=== PATIENT | male | born 1950 | race Caucasian/White ===

== ENCOUNTER → 2020-07-29 11:16 | Outpatient (BNVA) | payer MEDICAID, SELFPAY | PROVIDERS: PCP Internal Medicine Geriatric Medicine; Visit Provider Urology | DX: N20.0 Calculus of kidney (principal) | CPT/HCPCS: 99202; 99203 ==

== ENCOUNTER 2020-12-21 09:03 | Emergency (ER) | payer MEDICAID, SELFPAY ==
--- NOTE | ~2020-12-21 | XR_ITS ---
EXAMINATION: XR SHOULDER, RIGHT CLINICAL INFORMATION: Fall, trauma, pain COMPARISON: None TECHNIQUE: Right shoulder is imaged in 3 views. FINDINGS: There is no fracture or dislocation or destructive process. The acromioclavicular alignment is normal. There is fine corticated ossicle superior acromioclavicular joint. Glenohumeral joint shows no narrowing or erosive change. There are no visible rotator cuff calcifications. Right lung apex shows no pneumothorax or pleural reaction. XR/XR shoulder RT min 2V IMPRESSION: Unremarkable right shoulder.
[2020-12-21 11:33] VITALS: BP 151/80; PULSE 63; RESP 20; TEMP 36.7; O2SAT 98; BMI 28.5
--- NOTE | 2020-12-21 12:00 | ED.EXTPRO ---
HPI - Extremity Problem General Chief complaint: Extremity Injury, Upper Stated complaint: shoulder pain, fall T-1 Time Seen by Provider: 12/21/20 11:31 Source: patient Mode of arrival: ambulatory Limitations: no limitations History of Present Illness HPI Narrative: 70 yo with past medical history of High cholesterol, HTN (hypertension), Renal stone here status post fall yesterday. The patient had a trip and fall down 2 steps landing on his right shoulder. He tells me he may have hit his head but he is unsure. There was no loss of consciousness. Denies headache, neck pain. Care complaining of right shoulder pain. No anticoagulation use. Related Data Home Medications Medication Instructions Recorded Confirmed aspirin 81 mg tablet,delayed 81 mg PO DAILY 07/29/20 release atorvastatin 40 mg tablet 40 mg PO DAILY 07/29/20 metoprolol succinate 100 mg 100 mg PO DAILY 07/29/20 tablet,extended release 24 hr valsartan 160 mg tablet 160 mg PO DAILY 07/29/20 Previous Rx's Medication Instructions Recorded cyclobenzaprine 10 mg PO TID PRN #10 tab 12/21/20 naproxen 500 mg PO BID PRN #30 tab 12/21/20 Allergies Allergy/AdvReac Type Severity Reaction Status Date / Time No Known Allergies Allergy Unverified 06/30/20 16:34 [No Known Allergies*] Review of Systems Review of Systems: Yes all other systems are reviewed and are negative Constitutional: Constitutional: Reports no additional constitutional complaints, Denies body ache(s), Denies chills, Denies fever(s), Denies headache(s) and Denies weakness Eyes: Eyes: Reports no additional eye complaints and Denies change in vision ENT: Reports system reviewed and no additional complaints, except as documented, Denies dizziness, Denies headache(s), Denies nasal congestion, Denies nasal discharge and Denies neck pain Cardiovascular: Cardiovascular: Reports no additional cardiovascular complaints, Denies chest pain, Denies leg edema and Denies dyspnea Respiratory: Respiratory: Reports no additional respiratory complaints, Denies cough and Denies dyspnea Gastrointestinal: Gastrointestinal: Reports no additional gastrointestinal complaints, Denies abdominal pain, Denies diarrhea, Denies nausea and Denies vomiting Genitourinary: Genitourinary: Denies urinary incontinence Musculoskeletal: Musculoskeletal: Reports no additional musculoskeletal complaints, Denies back pain, Reports arthralgias, Reports joint swelling, Denies neck pain, Denies numbness and Denies tingling Integumentary/Breasts: Skin/Breast: Reports system reviewed and no additional complaints, except as docu and Denies rash Neurologic: Reports system reviewed and no additional complaints, except as documented, Denies Abnormal speech present, Denies dizziness, Denies headache(s), Denies numbness, Denies tingling and Denies weakness PMFSH Past Medical History Attestation statement: The following information was validated with the patient. Source: old records reviewed and nursing notes reviewed Medical History (Updated 12/21/20 @ 12:11 by Fanta Johnson NP) High cholesterol HTN (hypertension) Renal stone Surgical History History of lung surgery Social History Social History Smoked in Last 30 Days: No Use of substances other than those prescribed or required for medical reasons: No Advance Directives: Yes Advance Directives Information Provided: No Advance Directives on File: No Physical Exam Vital Signs: Vital Signs: Last Vital Signs Temp 98.0 F 12/21/20 11:33 Pulse 63 12/21/20 11:33 Resp 20 12/21/20 11:33 BP 151/80 H 12/21/20 11:33 Pulse Ox 98 12/21/20 11:33 Body Mass Index 28.5 Const: General: cooperative, healthy appearing, comfortable and no acute distress Orientation/consciousness: patient oriented x3 Limitations: no limitations HENMT: Head: Yes normal to inspection Ears: hearing grossly normal bilaterally General nose exam: Normal external nose present Face and sinus: Yes normal facial exam Mouth: Normal oral and palatal mucosa present Throat: Yes posterior oropharynx normal Eyes: General: appearance normal, both eyes and all related structures Pupils: Equal, round and reactive pupils present Neck: Neck: Yes normal visual inspection Chest: Chest palpation & inspection: normal inspection of the chest Resp: Effort & Inspection: normal respiratory effort Auscultation: clear to auscultation bilaterally Cardio: Rate: regular rate Rhythm: regular rhythm Peripheral pulses: Peripheral pulses 2+ throughout GI: Inspection: Yes normal to inspection Palpation (GI): Soft to palpation and nontender Auscultation: normal bowel sounds Back/Spine/Pelvis: Thoracic/Lumbar Spine: thoracic and lumbar spine normal to inspection Skin: General skin exam: no rashes or lesions noted Neuro: General: patient oriented x3, no focal motor deficits and normal sensation to monofilament Cranial nerves: Yes CN's II-XII intact bilaterally, Yes Equal, round and reactive pupils present, Yes Bilaterally intact EOM present, Yes Nystagmus not present, Yes Normal facial strength present and Yes Midline tongue present Cognition (Neuro): normal cognition Speech: No Abnormal speech present Gait exam (Neuro): Normal gait present Motor exam (neuro): 5/5 motor strength present throughout Sensory Exam: Normal double simultaneous stimulation for sensation Coordination: [id number] test normal, jnss-[id number] test normal and tandem gait normal Extrem: Other: Tenderness to the right proximal humerus with no deformity or swelling. Full range of motion. Neurovascularly intact distally. No obvious ecchymosis or deformity General: Yes normal to inspection Course Course Course Narrative: Right shoulder pain status post mechanical fall. There is also question head injury. The patient has no headache or neck pain or vision changes or nausea or vomiting. Normal neurological exam. I did recommend that we also obtain imaging of his head and neck but he declined this. He tells me he would only like an x-ray of his shoulder. 1305-0 shoulder x-ray shows no acute finding. Likely contusion. Reviewed care at home. Reviewed worrisome signs and symptoms of when to return to the emergency department. Comfortable discharge home. MDM - Extremity (Nontraumatic) Imaging Data shoulder x-ray: Attestation: I personally reviewed and interpreted this imaging study as follows: Radiologist's impression: EXAMINATION: XR SHOULDER, RIGHT CLINICAL INFORMATION: Fall, trauma, pain COMPARISON: None TECHNIQUE: Right shoulder is imaged in 3 views. FINDINGS: There is no fracture or dislocation or destructive process. The acromioclavicular alignment is normal. There is fine corticated ossicle superior acromioclavicular joint. Glenohumeral joint shows no narrowing or erosive change. There are no visible rotator cuff calcifications. Right lung apex shows no pneumothorax or pleural reaction. XR/XR shoulder RT min 2V IMPRESSION: Unremarkable right shoulder. Discharge Plan Discharge Clinical Impression: Contusion of right shoulder Patient Disposition: Home, Self-Care Instructions: Contusion in Adults (ED) Additional Instructions: Ice to the shoulder Light movement Follow-up with your PCP by saturday of no improvement in pain Prescriptions: New cyclobenzaprine 10 mg tablet 10 mg PO TID PRN (Reason: muscle spasm) Qty: 10 RF: 0 naproxen 500 mg tablet 500 mg PO BID PRN (Reason: pain) Qty: 30 RF: 0 No Action aspirin [Adult Aspirin Regimen] 81 mg tablet,delayed release (DR/EC) 81 mg PO DAILY RF: 0 atorvastatin 40 mg tablet 40 mg PO DAILY RF: 0 valsartan 160 mg tablet 160 mg PO DAILY RF: 0 metoprolol succinate 100 mg tablet extended release 24 hr 100 mg PO DAILY RF: 0 Referrals: Name,MD Baldomero [Primary Care Provider] - 2 days Interventions: ED Discharge Assessment Last Done: 12/21/20 12:26 Discharge Date/Time: 12/21/20 12:26
== END 2020-12-21 12:26 | disposition home or self-care (01) ==
PROVIDERS: Emergency Provider Emergency Medicine Emergency Medical Services; PCP Internal Medicine Geriatric Medicine
DX: S40.011A Contusion of right shoulder, initial encounter (principal); S49.91XA Unspecified injury of right shoulder and upper arm, initial encounter; M25.511 Pain in right shoulder; W10.9XXA Fall (on) (from) unspecified stairs and steps, initial encounter; Y93.9 Activity, unspecified; Y92.9 Unspecified place or not applicable; Y99.9 Unspecified external cause status; Z79.899 Other long term (current) drug therapy; Z79.82 Long term (current) use of aspirin
CPT/HCPCS: 73030; 99283

== ENCOUNTER 2021-05-01 12:43 | Emergency (ER) | payer MEDICAID, SELFPAY ==
--- NOTE | ~2021-05-01 | XR_ITS ---
EXAMINATION: XR CHEST CLINICAL INFORMATION: Chest pain COMPARISON: Previous chest x-ray most recent July [address] December 2015 TECHNIQUE: 2 views of the chest were obtained. FINDINGS: The cardiac and mediastinal contours are stable. There are postsurgical changes to the left hemithorax surgical clips in the left posterior lower chest. There is a small peripheral 5 mm right mid lung nodule that appears unchanged. There may be chronic increased interstitial markings seen in the lungs, particularly left lung. This appears unchanged. There is biapical pleural thickening. The lungs are otherwise clear. There is no pleural effusion or pneumothorax. There is mild curvature of the thoracic spine. XR/XR chest 2V IMPRESSION: No evidence for acute disease in the chest. Surgical clips in the left posterior lower chest. Stable small peripheral right mid pulmonary nodule and increased interstitial markings similar to previous exams.
[2021-05-01 12:50] VITALS: BP 190/80; PULSE 77; RESP 18; TEMP 37; O2SAT 97; BMI 29.9
--- NOTE | 2021-05-01 13:04 | ECG_ITS ---
Test Reason : CHESTPAIN Blood Pressure : / mmHG Vent. Rate : 071 BPM Atrial Rate : 071 BPM P-R Int : 156 ms QRS Dur : 090 ms QT Int : 370 ms P-R-T Axes : 047 045 059 degrees QTc Int : 402 ms Normal sinus rhythm Normal ECG When compared with ECG of 10-JAN-2016 15:30, No significant change was found Referred By: Generic ED Physician Electronically Signed By:RAYNE PARKER MD
[2021-05-01 14:30] LABS: MANUAL DIFF FLAG NO
[2021-05-01 14:34] LABS: Basophils Absolute Auto 0.1 X10*3/uL (0.0-0.2); Basophils Percent Auto 0.9 % (0-2); Eosinophils Absolute Auto 0.4 X10*3/uL (0.0-0.4); Eosinophils Percent Auto 4.5 % (0-4); Hematocrit 42.6 % (42-52); Hemoglobin 14.3 g/dl (14.0-18.0); Imm Gran Pct Auto 1.2 % (0.0-0.4); Lymphocytes Absolute Auto 1.3 X10*3/uL (1.2-4.9); Lymphocytes Percent Auto 15.6 % (20-40); Mean Corpuscular HGB Conc 33.6 g/dl (31.0-36.0); Mean Corpuscular Hemoglobin 29.1 pg (27.0-33.0); Mean Corpuscular Volume 86.6 fL (80-98); Mean Platelet Volume 9.9 fL (9.4-12.4); Monocytes Absolute Auto 0.6 X10*3/uL (0.1-1.2); Monocytes Percent Auto 7.8 % (2-11); Neutrophils Absolute Auto 5.7 X10*3/uL (2.0-8.3); Platelet Count 267 X10*3/uL (160-400); Red Blood Count 4.92 X10*6/uL (4.60-5.80); Red Cell Distribution Width 12.6 % (11.0-16.0); White Blood Count 8.2 X10*3/uL (4.8-10.8)
--- NOTE | 2021-05-01 14:50 | ED.CHESTPAIN ---
HPI - Chest Pain General Chief Complaint: Chest Pain Stated Complaint: CHEST TO BACK PAIN Time Seen by Provider: 05/01/21 13:56 Source: patient Mode of arrival: ambulatory Limitations: no limitations History of Present Illness MD complaint: other (L back sharp pain) Onset (ago): day(s) (3) Timing of current episode: episodic Prior episodes: No Onset: during rest and during exertion Pain location: lateral and posterior Pain radiation: none Severity: moderate Quality: sharp Relieving factors: nothing Exacerbating factors: inspiration, palpation and movement Treatment prior to arrival: none Related Data Home Medications Medication Instructions Recorded Confirmed aspirin 81 mg tablet,delayed 81 mg PO DAILY 07/29/20 release atorvastatin 40 mg tablet 40 mg PO DAILY 07/29/20 metoprolol succinate 100 mg 100 mg PO DAILY 07/29/20 tablet,extended release 24 hr valsartan 160 mg tablet 160 mg PO DAILY 07/29/20 Previous Rx's Medication Instructions Recorded cyclobenzaprine 10 mg PO TID PRN #10 tab 12/21/20 naproxen 500 mg PO BID PRN #30 tab 12/21/20 cyclobenzaprine 10 mg PO TID PRN #14 tab 05/01/21 lidocaine 1 patch TOPICAL DAILY PRN #10 ea 05/01/21 Allergies Allergy/AdvReac Type Severity Reaction Status Date / Time No Known Allergies Allergy Unverified 06/30/20 16:34 [No Known Allergies*] Review of Systems Review of Systems: Constitutional : No Weight loss, No Fever, No Chills ENT/Mouth : No sore throat, No Rhinorrhea Eyes: No Eye Pain, No Swelling Cardiovascular : pos Chest Pain, no SOB, no Dyspnea on Exertion, No Orthopnea, No Edema, No Palpitations Respiratory : No Cough, No Sputum Gastrointestinal : no Nausea, No Vomiting, No Diarrhea, No abdominal Pain, No Hematochezia, No Melena Genitourinary : No Dysuria, No Urinary Frequency Musculoskeletal : No joint pain, No Myalgias, No Joint Swelling, pos back pain Skin : No Skin Lesions, No rash Neuro : No Weakness, No Numbness, No Dizziness, No Headache Psych : No Anxiety/Panic, No Depression Heme/Lymph: No Bruising, No Lymphadenopathy Endocrine : No Polyuria, No Polydipsia All other systems reviewed and are negative PMFSH Past Medical History Attestation statement: The following information was validated with the patient. Medical History Depression High cholesterol HTN (hypertension) Renal stone Surgical History History of lung surgery Social History Social History Alcohol intake: never Patient Tobacco Use Status: Former Tobacco user Use of substances other than those prescribed or required for medical reasons: No Advance Directives: No Advance Directives Information Provided: No Physical Exam Vital Signs: Vital Signs: Last Vital Signs Temp 98.6 F 05/01/21 12:50 Pulse 66 05/01/21 14:53 Resp 21 H 05/01/21 14:53 BP 190/91 H 05/01/21 14:53 Pulse Ox 97 05/01/21 14:53 Body Mass Index 29.9 Appearance: Alert. Oriented X3. No acute distress. Eyes: Pupils equal, round and reactive to light. ENT: Pharynx normal. Neck: Normal inspection. Neck supple. CVS: Normal heart rate and rhythm. Pulses normal. Back: ttp L upper back near scapula reproduces pain Respiratory: No respiratory distress. Breath sounds normal. Abdomen: Soft and nontender. Skin: Skin warm and dry. Normal skin color. Normal skin turgor. Extremities: No lower extremity edema. No calf ttp Neuro: Oriented X 3. No motor deficit. No sensory deficit. Course Course Course Narrative: patient with negative ddimer, CXR, nonischemic EKG, trop in flat range at 3 day daryl MDM - Chest Pain MDM Narrative Medical decision making narrative: 71 yo male with HTN prior L VATS procedure for what sounds like empyema 20 years ago c/o 3 days of L sided upper back pain that is MSK in nature but reproduceable will need labs, ekg, troponin x 1, pain control, ddimer dispo per results and findings. Lab Data Result diagrams: 05/01/21 14:24 05/01/21 14:24 Labs: Lab Results 05/01/21 05/01/21 05/01/21 Range/Units 14:23 14:24 14:24 WBC 8.2 (4.8-10.8) X10*3/uL RBC 4.92 (4.60-5.80) X10*6/uL Hgb 14.3 (14.0-18.0) g/dl Hct 42.6 (42-52) % MCV 86.6 (80-98) fL MCH 29.1 (27.0-33.0) pg MCHC 33.6 (31.0-36.0) g/dl RDW 12.6 (11.0-16.0) % Plt Count 267 (160-400) X10*3/uL MPV 9.9 (9.4-12.4) fL Immature Gran % (Auto) 1.2 H (0.0-0.4) % Neut % (Auto) 70.0 (45-73) % Lymph % (Auto) 15.6 L (20-40) % [place] % (Auto) 7.8 (2-11) % Eos % (Auto) 4.5 H (0-4) % Baso % (Auto) 0.9 (0-2) % Lymph # (Auto) 1.3 (1.2-4.9) X10*3/uL [place] # (Auto) 0.6 (0.1-1.2) X10*3/uL Eos # (Auto) 0.4 (0.0-0.4) X10*3/uL Baso # (Auto) 0.1 (0.0-0.2) X10*3/uL Abs Immat Gran (auto) 0.10 H (0.00-0.03) X10*3/uL Absolute Neuts (auto) 5.7 (2.0-8.3) X10*3/uL Absolute Nucleated RBC 0.000 (0.0-0.012) X10*3/uL Nucleated RBC % (auto) 0.0 (0.0-0.2) /100WBC D-Dimer NG/ML Sodium 137 (135-145) mmol/L Potassium 4.6 (3.3-5.1) mmol/L Chloride 103 (96-108) mmol/L Carbon Dioxide 27 (22-29) mmol/L Anion Gap 12 (12-20) BUN 11 (9-16) mg/dL Creatinine 1.06 (0.5-1.4) mg/dL Estim Creat Clear Calc 72.6 Estimated GFR > 60 Random Glucose 220 H (60-115) mg/dL Calcium 9.6 (8.4-10.2) mg/dL Troponin I High Sens 6.4 (<3.5-35.0) ng/L 05/01/21 Range/Units 15:20 WBC (4.8-10.8) X10*3/uL RBC (4.60-5.80) X10*6/uL Hgb (14.0-18.0) g/dl Hct (42-52) % MCV (80-98) fL MCH (27.0-33.0) pg MCHC (31.0-36.0) g/dl RDW (11.0-16.0) % Plt Count (160-400) X10*3/uL MPV (9.4-12.4) fL Immature Gran % (Auto) (0.0-0.4) % Neut % (Auto) (45-73) % Lymph % (Auto) (20-40) % [place] % (Auto) (2-11) % Eos % (Auto) (0-4) % Baso % (Auto) (0-2) % Lymph # (Auto) (1.2-4.9) X10*3/uL [place] # (Auto) (0.1-1.2) X10*3/uL Eos # (Auto) (0.0-0.4) X10*3/uL Baso # (Auto) (0.0-0.2) X10*3/uL Abs Immat Gran (auto) (0.00-0.03) X10*3/uL Absolute Neuts (auto) (2.0-8.3) X10*3/uL Absolute Nucleated RBC (0.0-0.012) X10*3/uL Nucleated RBC % (auto) (0.0-0.2) /100WBC D-Dimer < 200 NG/ML Sodium (135-145) mmol/L Potassium (3.3-5.1) mmol/L Chloride (96-108) mmol/L Carbon Dioxide (22-29) mmol/L Anion Gap (12-20) BUN (9-16) mg/dL Creatinine (0.5-1.4) mg/dL Estim Creat Clear Calc Estimated GFR Random Glucose (60-115) mg/dL Calcium (8.4-10.2) mg/dL Troponin I High Sens (<3.5-35.0) ng/L ECG Data ECG #1: Attestation: I personally reviewed and interpreted this ECG as follows: ECG interpretation date: 05/01/21 ECG interpretation time: 14:51 Interpretation: Rate: 71 Rhythm: NSR [place]: normal Normal P waves. Normal BRYAN. Normal QRS complex. ST T wave : normal no ALEJANDRA qTC: normal prior studies: no acute ischemia The study has been interpreted contemporaneously by me. . Discharge Plan Discharge Clinical Impression: Atypical chest pain Back pain Qualifiers: Back pain location: thoracic back pain Chronicity: acute Back pain laterality: left Qualified Code(s): M54.6 - Pain in thoracic spine Patient Disposition: Home, Self-Care Instructions: Chest Pain (ED), Back Pain (ED) Additional Instructions: return to ED for any worsening symptoms or concerns Prescriptions: New cyclobenzaprine 10 mg tablet 10 mg PO TID PRN (Reason: muscle spasm) Qty: 14 RF: 0 lidocaine 4 % adhesive patch,medicated 1 patch topical DAILY PRN (Reason: pain) Qty: 10 RF: 0 No Action cyclobenzaprine 10 mg tablet 10 mg PO TID PRN (Reason: muscle spasm) Qty: 10 RF: 0 naproxen 500 mg tablet 500 mg PO BID PRN (Reason: pain) Qty: 30 RF: 0 aspirin [Adult Aspirin Regimen] 81 mg tablet,delayed release (DR/EC) 81 mg PO DAILY RF: 0 atorvastatin 40 mg tablet 40 mg PO DAILY RF: 0 valsartan 160 mg tablet 160 mg PO DAILY RF: 0 metoprolol succinate 100 mg tablet extended release 24 hr 100 mg PO DAILY RF: 0 Referrals: Name,MD Baldomero [Primary Care Provider] - 2 days (if not better) Print Language: Colombian
[2021-05-01 14:53] VITALS: BP 190/91; PULSE 66; RESP 21; O2SAT 97
[2021-05-01 14:56] LABS: Anion Gap 12 (12-20); Blood Urea Nitrogen 11 mg/dL (9-16); Calcium 9.6 mg/dL (8.4-10.2); Carbon Dioxide 27 mmol/L (22-29); Chloride 103 mmol/L (96-108); Creatinine Clr Calc Pharmacy 72.6; Estimated Glomerular Filt Rate > 60; Glucose Random 220 mg/dL (60-115); Potassium 4.6 mmol/L (3.3-5.1); Sodium 137 mmol/L (135-145)
[2021-05-01 14:58] VITALS: PULSE 64
[2021-05-01 15:02] LABS: Troponin-I High Sensitivity 6.4 ng/L (<3.5-35.0)
[2021-05-01] MEDS: Acetaminophen 325 MG TABLET 650 MG PO (15:11)
[2021-05-01] MEDS: Lidocaine 4 % Patch ADH..PATCH 1 PATCH TRANSDERMA (15:11)
[2021-05-01] MEDS: Cyclobenzaprine HCl 10 MG TABLET PO (15:11)
[2021-05-01 15:35] LABS: D Dimer < 200 NG/ML
[2021-05-01 15:44] VITALS: BP 173/88; PULSE 64
== END 2021-05-01 15:47 | disposition home or self-care (01) ==
PROVIDERS: Emergency Provider Emergency Medicine; PCP Internal Medicine Geriatric Medicine
DX: R07.89 Other chest pain (principal); M54.6 Pain in thoracic spine; I10 Essential (primary) hypertension; Z79.82 Long term (current) use of aspirin; Z79.899 Other long term (current) drug therapy
CPT/HCPCS: 36415; 71046; 80048; 84484; 85025; 85379; 93005; 99284; 99285

== ENCOUNTER 2021-06-28 11:59 | Outpatient (REF) | payer MEDICAID, SELFPAY ==
--- NOTE | ~2021-06-28 | US_ITS ---
EXAMINATION: US RETROPERITONEAL LIMITED (RENAL ONLY) CLINICAL INFORMATION: Calculus of kidney. COMPARISON: CT abdomen and pelvis 06/29/2020. TECHNIQUE: Real-time imaging of the kidneys. FINDINGS: RIGHT KIDNEY: 11.6 x 4.7 x 5.0 cm (SAG x AP x TRV). The kidney is normal in size, contour, and echogenicity. Renal cortical thickness is normal. No calculi or focal parenchymal lesions. No hydronephrosis. LEFT KIDNEY: 10.9 x 5.3 x 5.3 cm (SAG x AP x TRV). The kidney is normal in size, contour, and echogenicity. Renal cortical thickness is normal. No calculi or focal parenchymal lesions. No hydronephrosis. US/US renal BI IMPRESSION: Unremarkable bilateral renal ultrasound.
== END 2021-06-28 12:00 | disposition home or self-care (01) ==
LOC: HO.US 11:59
PROVIDERS: PCP Internal Medicine Geriatric Medicine; Visit Provider Urology
DX: N20.0 Calculus of kidney (principal)
CPT/HCPCS: 76775

== ENCOUNTER 2021-09-16 14:00 | Emergency (ER) | payer MEDICAID, SELFPAY ==
[2021-09-16 16:01] VITALS: BP 186/96; PULSE 90; RESP 18; TEMP 36.1; O2SAT 97; BMI 32.8
--- NOTE | 2021-09-16 18:10 | ED_ITS ---
HPI - Back Pain/Injury General Chief Complaint: Back Pain/Injury Stated Complaint: Back Pain No Injury Time Seen by Provider: 09/16/21 17:55 Source: patient Mode of arrival: ambulatory Limitations: no limitations History of Present Illness HPI Narrative: Patient no significant back problem noticed pain in left lower back for last 2 days radiating to the left leg no history of trauma no weakness Related Data Home Medications Medication Instructions Recorded Confirmed aspirin 81 mg tablet,delayed 81 mg PO DAILY 07/29/20 release (Adult Aspirin Regimen) atorvastatin 40 mg tablet 40 mg PO DAILY 07/29/20 metoprolol succinate 100 mg 100 mg PO DAILY 07/29/20 tablet,extended release 24 hr valsartan 160 mg tablet 160 mg PO DAILY 07/29/20 Previous Rx's Medication Instructions Recorded cyclobenzaprine 10 mg tablet 10 mg PO TID PRN #10 tab 12/21/20 naproxen 500 mg tablet 500 mg PO BID PRN #30 tab 12/21/20 cyclobenzaprine 10 mg tablet 10 mg PO TID PRN #14 tab 05/01/21 lidocaine 4 % topical patch 1 patch TOPICAL DAILY PRN #10 ea 05/01/21 cyclobenzaprine 10 mg tablet 10 mg PO Q8H #20 tab 09/16/21 oxycodone 5 mg tablet 5 mg PO Q6H PRN #20 tab 09/16/21 Allergies Allergy/AdvReac Type Severity Reaction Status Date / Time No Known Allergies Allergy Unverified 09/16/21 16:00 [No Known Allergies*] Review of Systems Review of Systems: Yes all other systems are reviewed and are negative [facility] Past Medical History Medical History Depression High cholesterol HTN (hypertension) Renal stone Surgical History History of lung surgery Social History Social History Alcohol intake: never Patient Tobacco Use Status: Former Tobacco user Advance Directives: No Advance Directives Information Provided: Yes Physical Exam Vital Signs: Vital Signs: Last Vital Signs Temp 97.0 F 09/16/21 16:01 Pulse 90 09/16/21 16:01 Resp 18 09/16/21 16:01 BP 186/96 H 09/16/21 16:01 Pulse Ox 97 09/16/21 16:01 BMI result Body Mass Index 32.8 Const: General: healthy appearing and comfortable Orientation/consciousness: patient oriented x3 GI: Inspection: Yes normal to inspection Palpation (GI): Soft to palpation and nontender : General: Yes no CVA tenderness Back/Spine/Pelvis: Back: no CVA tenderness Thoracic/Lumbar Spine: No thoracic spinal tenderness and No lumbar spinal tenderness Back/spine/pelvis image: 1. Left sciatic notch tenderness SLR positive at 60 degrees on the left side no paresthesias no motor weakness Neuro: General: patient oriented x3, gait normal, tone normal, moves all extremities and Normal light touch and pain sensation Discharge Plan Discharge Clinical Impression: Sciatica Qualifiers: Laterality: left Qualified Code(s): M54.32 - Sciatica, left side Patient Disposition: Home, Self-Care Instructions: Sciatica (ED) Additional Instructions: Rest at home Use donut to sit Take pain medication and muscle relaxant as advised Prescriptions: New cyclobenzaprine 10 mg tablet 10 mg PO Q8H Qty: 20 RF: 0 oxycodone 5 mg tablet 5 mg PO Q6H PRN (Reason: Pain (Scale Score 4-6)) Qty: 20 RF: 0 No Action cyclobenzaprine 10 mg tablet 10 mg PO TID PRN (Reason: muscle spasm) Qty: 10 RF: 0 naproxen 500 mg tablet 500 mg PO BID PRN (Reason: pain) Qty: 30 RF: 0 cyclobenzaprine 10 mg tablet 10 mg PO TID PRN (Reason: muscle spasm) Qty: 14 RF: 0 lidocaine 4 % adhesive patch,medicated 1 patch topical DAILY PRN (Reason: pain) Qty: 10 RF: 0 aspirin [Adult Aspirin Regimen] 81 mg tablet,delayed release (DR/EC) 81 mg PO DAILY RF: 0 atorvastatin 40 mg tablet 40 mg PO DAILY RF: 0 valsartan 160 mg tablet 160 mg PO DAILY RF: 0 metoprolol succinate 100 mg tablet extended release 24 hr 100 mg PO DAILY RF: 0 Interventions: ED Discharge Assessment Last Done: 09/16/21 18:54 Discharge Date/Time: 09/16/21 18:56
[2021-09-16] MEDS: Cyclobenzaprine HCl 10 MG TABLET PO (18:32)
[2021-09-16] MEDS: oxyCODONE HCl Immed Release 5 MG TABLET 10 MG PO (18:32)
== END 2021-09-16 18:56 | disposition home or self-care (01) ==
PROVIDERS: Emergency Provider Internal Medicine
DX: M54.42 Lumbago with sciatica, left side (principal); I10 Essential (primary) hypertension
CPT/HCPCS: 99283; 99284

== ENCOUNTER 2021-09-18 21:58 | Emergency (ER) | payer MEDICAID, SELFPAY ==
--- NOTE | ~2021-09-18 | CT_ITS ---
EXAMINATION: CT ABDOMEN AND PELVIS WITHOUT CONTRAST CLINICAL INFORMATION: Lumbar pain. Urinary retention. COMPARISON: 06.29.2020 TECHNIQUE: Multidetector volumetric imaging was performed from the superior aspect of the liver through the pubic symphysis. Sagittal and coronal reformatted images were obtained on the technologist's workstation. This CT examination was performed using dose optimization techniques as appropriate, variously including the following: *Automated exposure control *Adjustment of mA and/or kV according to patient size (this includes techniques or standardized protocols for targeted exams where dose is matched to indication/reason for exam; i.e. extremities or head) *Use of iterative reconstruction technique DLP: 635 mGy-cm FINDINGS: LUNG BASES: Postsurgical changes redemonstrated along the left lower hemithorax. Mild emphysema and bibasilar pleural-parenchymal scarring. Coronary calcifications. LIVER, GALLBLADDER, AND BILIARY TREE: The liver is normal in size, shape, and attenuation. No focal hepatic lesion or biliary ductal dilatation is present. Cholelithiasis. PANCREAS: Unremarkable. SPLEEN: Unremarkable. ADRENAL GLANDS: Unremarkable. KIDNEYS AND URETERS: The kidneys are normal in size, shape, and attenuation. No hydronephrosis, hydroureter, or calculi seen. No perinephric stranding. BLADDER: Empty around a Castorena catheter. Lateral otherwise unremarkable. GASTROINTESTINAL TRACT: The small and large bowel are unremarkable. The appendix is unremarkable. ABDOMINAL WALL: Small fat-containing indirect inguinal hernia on the right. LYMPH NODES: Normal. VASCULAR: Aorta is atherosclerotic but normal caliber. PELVIC VISCERA: Prostate is mildly enlarged and contains dystrophic calcifications. No periprostatic fat stranding. Seminal vesicles unremarkable. OSSEOUS STRUCTURES: No acute or suspicious osseous abnormalities. CT/CT abdomen pelvis wo con IMPRESSION: * No acute findings within the abdomen or pelvis. * Bladder is empty and contains a Castorena catheter. * No hydronephrosis or urinary calculi. * No acute osseous abnormalities with respect to the lumbar spine. * Stable chronic findings including cholelithiasis, mild prostatomegaly and emphysema.
[2021-09-18 22:07] VITALS: BP 186/100; PULSE 93; O2SAT 98
[2021-09-18 22:46] VITALS: BP 179/94; PULSE 75; RESP 18; TEMP 36.6; O2SAT 94; BMI 31.8
[2021-09-18 23:22] LABS: Appearance Urine CLEAR; Color Urine YELLOW; Glucose Urine UA NEG (NEG); Leukocyte Esterase Urine NEG (NEG); Nitrite Urine NEG (NEG); Specific Gravity - Urine >= 1.030 (1.005-1.025); Urine Blood NEG (NEG); Urine Ketones NEG (NEG); Urine Protein TRACE MG/DL (NEG-TRACE)
--- NOTE | 2021-09-19 01:16 | PC.NURSE ---
PT TO ROOM, CHG INTO GOWN AND AWAITING FOR MD'S EVAL.
--- NOTE | 2021-09-19 01:22 | ED.MALEGU ---
HPI - Male Genitourinary General Chief complaint: Urogenital-Male Stated complaint: LEFT HIP AND BACK PAIN Time Seen by Provider: 09/19/21 01:16 Source: patient Mode of arrival: ambulatory Limitations: no limitations History of Present Illness HPI Narrative: Patient comes to emergency room complaining of urinary retention. Patient was seen 2 days ago, diagnosed with sciatica, given oxycodone. Patient states that after starting the oxycodone he started having urinary retention. Patient states he has had back pain for 4 days. Patient denies any history of trauma, no heavy lifting. Patient states that the pain started while he was sitting down. Patient denies any leg weakness, no urinary incontinence or fecal incontinence/retention. Only complaining of urinary retention that started after taking oxycodone Related Data Home Medications Medication Instructions Recorded Confirmed aspirin 81 mg tablet,delayed 81 mg PO DAILY 07/29/20 release (Adult Aspirin Regimen) atorvastatin 40 mg tablet 40 mg PO DAILY 07/29/20 metoprolol succinate 100 mg 100 mg PO DAILY 07/29/20 tablet,extended release 24 hr valsartan 160 mg tablet 160 mg PO DAILY 07/29/20 Previous Rx's Medication Instructions Recorded cyclobenzaprine 10 mg tablet 10 mg PO TID PRN #10 tab 12/21/20 naproxen 500 mg tablet 500 mg PO BID PRN #30 tab 12/21/20 cyclobenzaprine 10 mg tablet 10 mg PO TID PRN #14 tab 05/01/21 lidocaine 4 % topical patch 1 patch TOPICAL DAILY PRN #10 ea 05/01/21 cyclobenzaprine 10 mg tablet 10 mg PO Q8H #20 tab 09/16/21 oxycodone 5 mg tablet 5 mg PO Q6H PRN #20 tab 09/16/21 acetaminophen 500 mg capsule 500 mg PO Q6H PRN #20 cap 09/19/21 ibuprofen 600 mg tablet 600 mg PO TID PRN #14 tab 09/19/21 Allergies Allergy/AdvReac Type Severity Reaction Status Date / Time No Known Allergies Allergy Unverified 09/16/21 16:00 [No Known Allergies*] Review of Systems Review of Systems: Constitutional : No Weight loss, No Fever, No Chills, No Night Sweats, No Fatigue, No Malaise ENT/Mouth : No Hearing loss, No Ear Pain, No Nasal Congestion, No Sinus Pain, No Hoarseness, No sore throat, No Rhinorrhea, No Swallowing Difficulty Eyes: No Eye Pain, No Swelling, No Redness, No Foreign Body, No Discharge, No Vision Changes Cardiovascular : No Chest Pain, No SOB, No Dyspnea on Exertion, No Orthopnea, No Edema, No Palpitations Respiratory : No Cough, No Sputum, No Wheezing, No Smoke Exposure, No Dyspnea Gastrointestinal : No Nausea, No Vomiting, No Diarrhea, No Constipation, No abdominal Pain, No Hematochezia, No Melena Genitourinary : Complaining of urinary retention after ingesting oxycodone. No Dysuria, No Urinary Frequency, No Hematuria, No Urinary Incontinence, No Urgency, No Flank Pain, No Urinary Flow Changes, No Hesitancy Musculoskeletal : Complaining of sacral pain radiating towards the left leg, No Myalgias, No Joint Swelling Skin : No Skin Lesions, No rash Neuro : No Weakness, No Numbness, No Paresthesias, No Loss of Consciousness, No Dizziness, No Headache Psych : No Anxiety/Panic, No Depression, No SI/HI/AH/VH, No Social Issues, Heme/Lymph: No Bruising, No Bleeding,No Lymphadenopathy Endocrine : No Polyuria, No Polydipsia, No Temperature Intolerance PMFSH Past Medical History Medical History Depression High cholesterol HTN (hypertension) Renal stone Surgical History History of lung surgery Social History Social History Alcohol intake: never Patient Tobacco Use Status: Former Tobacco user Advance Directives: No Physical Exam Vital Signs: Vital Signs: Last Vital Signs Temp 97.8 F 09/19/21 02:00 Pulse 85 09/19/21 02:00 Resp 16 09/19/21 02:00 BP 148/81 H 09/19/21 02:00 Pulse Ox 97 09/19/21 02:00 BMI result Body Mass Index 31.8 Const: Other: Appearance: Alert. Oriented X3. No acute distress. Eyes: Pupils equal, round and reactive to light. ENT: Pharynx normal. Neck: Normal inspection. Neck supple. No lymph nodes noted. No crepitus CVS: Normal heart rate and rhythm. Pulses normal. Normal S1 and S2 Respiratory: No respiratory distress. Breath sounds normal. No Wheezing. No rales Abdomen: Soft , discomfort to palpation in suprapubic area, slightly distended, bedside bladder scan shows over 500 cc of urine. Rectal exam: No saddle anesthesia, good/normal anal/rectal tone Skin: Skin warm and dry. Normal skin color. Normal skin turgor. Extremities: No lower extremity edema. No Lacerations. No Rash, patient is ambulatory, steady gait unassisted Neuro: Oriented X 3. No motor deficit. No sensory deficit. Moving all extermities. No slurred speech. Course Course Course Narrative: Patient has a Castorena catheter. Patient will follow-up with Urology. I discussed the CT findings with the patient and the physical exam. Patient likely having sciatica/lumbar radiculopathy. Patient instructed to follow up with Urology in 2 days. Patient continues having back pain, he will likely need an MRI, instructed to follow-up with his primary care physician. Instructed to discontinue oxycodone, patient will take Tylenol and ibuprofen alternating. [facility] - Male Genitourinary Lab Data Labs: Lab Results 09/18/21 Range/Units 23:16 Urine Color YELLOW Urine Appearance CLEAR Urine pH 6.0 (5.0-8.0) Ur Specific [place] >= 1.030 H (1.005-1.025) Urine Protein TRACE (NEG-TRACE) MG/DL Urine Glucose (UA) NEG (NEG) MG/DL Urine Ketones NEG (NEG) MG/DL Urine Blood NEG (NEG) Urine Nitrite NEG (NEG) Ur Leukocyte Esterase NEG (NEG) Discharge Plan Discharge Clinical Impression: Acute urinary retention, Sciatica Patient Disposition: Home, Self-Care Instructions: Urinary Retention in Men (ED), Lumbar Radiculopathy (ED) Additional Instructions: Please follow-up with your primary care physician tomorrow. If you have any worsening or new symptoms, please return to the emergency room or call 911 Prescriptions: New acetaminophen 500 mg capsule 500 mg PO Q6H PRN (Reason: pain) Qty: 20 RF: 0 ibuprofen 600 mg tablet 600 mg PO TID PRN (Reason: pain) Qty: 14 RF: 0 No Action cyclobenzaprine 10 mg tablet 10 mg PO TID PRN (Reason: muscle spasm) Qty: 10 RF: 0 naproxen 500 mg tablet 500 mg PO BID PRN (Reason: pain) Qty: 30 RF: 0 cyclobenzaprine 10 mg tablet 10 mg PO TID PRN (Reason: muscle spasm) Qty: 14 RF: 0 lidocaine 4 % adhesive patch,medicated 1 patch topical DAILY PRN (Reason: pain) Qty: 10 RF: 0 cyclobenzaprine 10 mg tablet 10 mg PO Q8H Qty: 20 RF: 0 oxycodone 5 mg tablet 5 mg PO Q6H PRN (Reason: Pain (Scale Score 4-6)) Qty: 20 RF: 0 aspirin [Adult Aspirin Regimen] 81 mg tablet,delayed release (DR/EC) 81 mg PO DAILY RF: 0 atorvastatin 40 mg tablet 40 mg PO DAILY RF: 0 valsartan 160 mg tablet 160 mg PO DAILY RF: 0 metoprolol succinate 100 mg tablet extended release 24 hr 100 mg PO DAILY RF: 0 Referrals: Mauricio Rebollar MD [Physician] - 2 days
[2021-09-19 02:00] VITALS: BP 148/81; PULSE 85; RESP 16; TEMP 36.6; O2SAT 97
--- NOTE | 2021-09-19 02:15 | PC.NURSE ---
stroud cath inserted w/o difficulty. leg bag attached to leg for pending dispo to home. pt denies complaints.
== END 2021-09-19 03:11 | disposition home or self-care (01) ==
PROVIDERS: Emergency Provider Emergency Medicine; PCP Internal Medicine Geriatric Medicine
DX: R33.9 Retention of urine, unspecified (principal); M54.42 Lumbago with sciatica, left side; M54.41 Lumbago with sciatica, right side; M25.552 Pain in left hip; Z79.899 Other long term (current) drug therapy
CPT/HCPCS: 51798; 74176; 81003; 99284

== ENCOUNTER 2021-09-20 12:16 | Emergency (ER) | payer MEDICAID, SELFPAY ==
[2021-09-20 13:06] VITALS: BP 142/78; PULSE 97; RESP 17; TEMP 36.7; O2SAT 96; BMI 29.5
--- NOTE | 2021-09-20 17:10 | ED_ITS ---
HPI - Male Genitourinary General Chief complaint: Urogenital-Male Stated complaint: Blood in urine Source: patient Mode of arrival: ambulatory Limitations: language barrier History of Present Illness HPI Narrative: 71-year-old male presents with Castorena catheterization problems. Stated that he had his cath placed on 09/19, would like to have it removed. Complaint: other (Castorena catheterization removal [facility]) Duration: constant Location: penis Severity: moderate Severity scale (1-10): 6 Quality: burning Relieving factors: none Exacerbating factors: movement Context: indwelling catheter Associated symptoms: Reports denies other symptoms Related Data Sexually active: No Home Medications Medication Instructions Recorded Confirmed aspirin 81 mg tablet,delayed 81 mg PO DAILY 07/29/20 release (Adult Aspirin Regimen) atorvastatin 40 mg tablet 40 mg PO DAILY 07/29/20 metoprolol succinate 100 mg 100 mg PO DAILY 07/29/20 tablet,extended release 24 hr valsartan 160 mg tablet 160 mg PO DAILY 07/29/20 Previous Rx's Medication Instructions Recorded cyclobenzaprine 10 mg tablet 10 mg PO TID PRN #10 tab 12/21/20 naproxen 500 mg tablet 500 mg PO BID PRN #30 tab 12/21/20 cyclobenzaprine 10 mg tablet 10 mg PO TID PRN #14 tab 05/01/21 lidocaine 4 % topical patch 1 patch TOPICAL DAILY PRN #10 ea 05/01/21 cyclobenzaprine 10 mg tablet 10 mg PO Q8H #20 tab 09/16/21 oxycodone 5 mg tablet 5 mg PO Q6H PRN #20 tab 09/16/21 acetaminophen 500 mg capsule 500 mg PO Q6H PRN #20 cap 09/19/21 ibuprofen 600 mg tablet 600 mg PO TID PRN #14 tab 09/19/21 Allergies Allergy/AdvReac Type Severity Reaction Status Date / Time No Known Allergies Allergy Verified 09/20/21 13:05 [No Known Allergies*] Review of Systems Review of Systems: Constitutional: No Fever, No Chills ENT/Mouth: No Ear Pain, No Hoarseness, No sore throat Eyes: No Eye Pain, No Swelling, No Redness, No Foreign Body Cardiovascular: No Chest Pain, No SOB Respiratory: No Cough, No Dyspnea Gastrointestinal: No Nausea, No Vomiting, No Diarrhea, No abdominal Pain Genitourinary: Positive penile pain and hematuria, No Dysuria, No Hematuria Musculoskeletal: No joint pain, No Myalgias, No Joint Swelling Skin: No Skin lacerations, No rash Neuro: No Weakness, No Numbness, No Paresthesias, No Loss of Consciousness, No Dizziness, No Headache Psych: No Anxiety/Panic, No Depression Heme/Lymph: no easy bruising, no Lymphadenopathy Endocrine: No Polyuria, No Polydipsia Yes all other systems are reviewed and are negative [facility] Past Medical History Attestation statement: The following information was validated with the patient. Source: old records reviewed Medical History Depression High cholesterol HTN (hypertension) Renal stone Surgical History History of lung surgery Social History Social History Alcohol intake: never Patient Tobacco Use Status: Former Tobacco user Advance Directives: No Advance Directives Information Provided: No Physical Exam Vital Signs: Vital Signs: Last Vital Signs Temp 98.0 F 09/20/21 13:06 Pulse 80 09/20/21 21:40 Resp 18 09/20/21 21:40 BP 186/96 H 09/20/21 21:40 Pulse Ox 97 09/20/21 21:40 BMI result Body Mass Index 29.5 Appearance: Alert. Oriented X3. No acute distress. Eyes: Pupils equal, round and reactive to light. ENT: Pharynx normal. Neck: Normal inspection. Neck supple. CVS: Normal heart rate and rhythm. Pulses normal. Respiratory: No respiratory distress. Breath sounds normal. Abdomen: Soft and nontender Genitourinary: Castorena catheterization has pink-tinged urine, no penile discharge or Castorena leakage. No testicular pain. Skin: Skin warm and dry. Normal skin color. Normal skin turgor. Extremities: No lower extremity edema. Gait well-balanced well coordinated. Neuro: No motor deficit. No sensory deficit. Course Course Course Narrative: 71-year-old male presents with Castorena catheterization irritation. States that the catheter is prevented him from walking correctly and that he noted some blood in the bag. He stopped taking the medications that he believes caused his urinary retention. No prior history of urinary retention in the past. He does have an appointment with Urology later this week. Castorena catheter removed without difficulty. Will provide plenty of fluids and request patient to urinate prior to discharge. 7:21 p.m. patient unable to void. Bladder scan ordered. 7:25 p.m. bladder scan indicates 275. 8:56 a.m. patient unable to void. Will replace Castorena and have patient follow-up with Urology. Detailed description regarding Castorena care, patient verbalized understanding of and agrees to plan of care discharge home. Patient's blood pressure is elevated, he will take his blood pressure medications at home. He has been at this facility for approximately 9 hours. BP medications were offered however he respectfully declined and would like to take them when he returns home. MDM - Male Genitourinary MDM Narrative Medical decision making narrative: Castorena catheter irritation Differential Diagnosis Differential diagnosis: Likely acute retention of urine Medical Records Attestation: I reviewed the patient's medical records. Discharge Plan Discharge Clinical Impression: Acute retention of urine Patient Disposition: Home, Self-Care Instructions: Urinary Retention in Men (ED), Castorena Catheter Placement and Care (ED) Additional Instructions: Your evaluated for urinary retention. You were unable to produce urine after removing your Castorena catheter. We replaced the Castorena while you were in the emergency department. Please keep the Castorena in place until you see Urology. Please call Dr. Rebollar for an appointment. Thank you for choosing this emergency department for evaluation. Please follow-up with primary care physician as needed. Return to the emergency department for any new, concerning, or worsening symptoms. Prescriptions: No Action cyclobenzaprine 10 mg tablet 10 mg PO TID PRN (Reason: muscle spasm) Qty: 10 RF: 0 naproxen 500 mg tablet 500 mg PO BID PRN (Reason: pain) Qty: 30 RF: 0 cyclobenzaprine 10 mg tablet 10 mg PO TID PRN (Reason: muscle spasm) Qty: 14 RF: 0 lidocaine 4 % adhesive patch,medicated 1 patch topical DAILY PRN (Reason: pain) Qty: 10 RF: 0 cyclobenzaprine 10 mg tablet 10 mg PO Q8H Qty: 20 RF: 0 oxycodone 5 mg tablet 5 mg PO Q6H PRN (Reason: Pain (Scale Score 4-6)) Qty: 20 RF: 0 acetaminophen 500 mg capsule 500 mg PO Q6H PRN (Reason: pain) Qty: 20 RF: 0 ibuprofen 600 mg tablet 600 mg PO TID PRN (Reason: pain) Qty: 14 RF: 0 aspirin [Adult Aspirin Regimen] 81 mg tablet,delayed release (DR/EC) 81 mg PO DAILY RF: 0 atorvastatin 40 mg tablet 40 mg PO DAILY RF: 0 valsartan 160 mg tablet 160 mg PO DAILY RF: 0 metoprolol succinate 100 mg tablet extended release 24 hr 100 mg PO DAILY RF: 0 Referrals: Mauricio Rebollar MD [Physician] - 2 days (Urinary retention) Interventions: ED Discharge Assessment Last Done: 09/20/21 21:53 Discharge Date/Time: 09/20/21 21:55
--- NOTE | 2021-09-20 17:28 | PC.NURSE ---
ffoley removed , pt drinking fluids, will discharge after urinating
--- NOTE | 2021-09-20 18:43 | PC.NURSE ---
attempted to urinate but unable , states he has no pain and doesn't have the urge to urinate
--- NOTE | 2021-09-20 19:07 | PC.NURSE ---
pt states he's starting to get the urge to urinate but is unable, report given to May FINLEY
--- NOTE | 2021-09-20 19:09 | PC.NURSE ---
REPORT RECIEVED FROM SOY FINLEY. PT HAD VILLANUEVA REMOVED HERE. WAITING FOR PATIENT TO VOID. WATER WAS GIVEN.
[2021-09-20 21:40] VITALS: BP 186/96; PULSE 80; RESP 18; O2SAT 97
== END 2021-09-20 21:55 | disposition home or self-care (01) ==
PROVIDERS: Emergency Provider Internal Medicine; PCP Internal Medicine Geriatric Medicine
DX: R33.9 Retention of urine, unspecified (principal); I10 Essential (primary) hypertension; Z87.442 Personal history of urinary calculi
CPT/HCPCS: 51702; 51798; 99284

== ENCOUNTER → 2021-09-22 11:07 | Outpatient (BNVA) | payer MEDICAID, SELFPAY | PROVIDERS: PCP Internal Medicine Geriatric Medicine; Visit Provider Urology ==

== ENCOUNTER → 2021-09-26 12:52 | Outpatient (BNVA) | payer MEDICAID, SELFPAY | PROVIDERS: PCP Internal Medicine Geriatric Medicine; Visit Provider Urology ==

== ENCOUNTER → 2021-10-09 10:28 | Outpatient (BNVA) | payer MEDICAID, SELFPAY | PROVIDERS: PCP Internal Medicine Geriatric Medicine; Visit Provider Urology | DX: R33.9 Retention of urine, unspecified (principal) | CPT/HCPCS: 51700; 51798 ==

== ENCOUNTER → 2021-12-13 09:43 | Outpatient (BNVA) | payer MEDICAID, SELFPAY | PROVIDERS: Visit Provider Urology ==

== ENCOUNTER → 2022-02-07 14:28 | Outpatient (BNVA) | payer MEDICAID, SELFPAY | PROVIDERS: PCP Internal Medicine Geriatric Medicine; Visit Provider Urology | DX: N32.0 Bladder-neck obstruction (principal); N20.0 Calculus of kidney; R33.9 Retention of urine, unspecified | CPT/HCPCS: 52000; 99212 ==

== ENCOUNTER 2022-08-09 09:29 | Outpatient (REF) | payer MEDICAID, SELFPAY ==
[2022-08-09 11:32] LABS: Prostate Specific Antigen 0.92 ng/mL (<0.05-4.0)
== END 2022-08-09 09:30 | disposition home or self-care (01) ==
LOC: HO.10HDL 09:29
PROVIDERS: Visit Provider Urology
DX: Z12.5 Encounter for screening for malignant neoplasm of prostate (principal); N32.0 Bladder-neck obstruction
CPT/HCPCS: 36415; 84153

== ENCOUNTER → 2022-08-14 12:37 | Outpatient (BNVA) | payer MEDICAID, SELFPAY | PROVIDERS: PCP Internal Medicine Geriatric Medicine; Visit Provider Urology ==

== ENCOUNTER 2023-07-19 11:42 | Outpatient (REF) | payer MEDICAID, SELFPAY | END 2023-07-19 11:43 | disposition home or self-care (01) | LOC: HO.HHCL 11:42 | PROVIDERS: Visit Provider Internal Medicine Geriatric Medicine | DX: E11.69 Type 2 diabetes mellitus with other specified complication (principal) | CPT/HCPCS: 82043; 82570 ==

== ENCOUNTER 2024-08-20 08:26 | Outpatient (REF) | payer MEDICAID, SELFPAY ==
[2024-08-20 11:23] LABS: MANUAL DIFF FLAG NO
[2024-08-20 11:32] LABS: Basophils Absolute Auto 0.1 X10*3/uL (0.0-0.2); Basophils Percent Auto 1.1 % (0-2); Eosinophils Absolute Auto 0.5 X10*3/uL (0.0-0.4); Eosinophils Percent Auto 6.6 % (0-4); Hematocrit 42.3 % (42.0-52.0); Hemoglobin 13.7 g/dl (14.0-18.0); Imm Gran Abs Auto 0.08 X10*3/uL (0.00-0.03); Imm Gran Pct Auto 1.1 % (0.0-0.4); Lymphocytes Absolute Auto 1.4 X10*3/uL (1.2-4.9); Lymphocytes Percent Auto 18.8 % (20-40); Mean Corpuscular HGB Conc 32.4 g/dl (31.0-36.0); Mean Corpuscular Hemoglobin 29.1 pg (27.0-33.0); Monocytes Absolute Auto 0.6 X10*3/uL (0.1-1.2); Monocytes Percent Auto 7.8 % (2-11); Neutrophils Absolute Auto 4.8 x10*3/uL (2.0-8.3); Neutrophils Percent Auto 64.6 % (45-73); Platelet Count 248 X10*3/uL (160-400); Red Cell Distribution Width 13.1 % (11.0-16.0); White Blood Count 7.4 X10*3/uL (4.8-10.8)
[2024-08-20 11:50] LABS: Alanine Aminotransferase 32 U/L (0-40); Alkaline Phosphatase 76 U/L (39-117); Anion Gap 12 (12-20); Aspartate Amino Transferase 30 U/L (5-37); Bilirubin Total 0.7 mg/dL (0.0-1.0); Blood Urea Nitrogen 13 mg/dL (9-16); Calcium 9.6 mg/dL (8.4-10.2); Carbon Dioxide 26 mmol/L (22-29); Chloride 107 mmol/L (96-108); Cholesterol 124 mg/dL (<200); Estimated Glomerular Filt Rate > 60; Glucose Random 133 mg/dL (60-115); HDL Cholesterol 35 mg/dL (>40); LDL Cholesterol Calculated 70 mg/dL (<100); Potassium 4.5 mmol/L (3.3-5.1); Sodium 140 mmol/L (135-145); Total Protein 7.1 g/dL (6.5-8.0); Triglycerides 98 mg/dL (<150)
[2024-08-20 12:08] LABS: Creatinine Urine 139.62 mg/dL; Microalbum/Creatinine Ratio Ur 25.7 ug/mg cr (<30)
[2024-08-20 12:15] LABS: ~HepC Num1 0.13 S/CO (0.00-0.79); ~Hepatitis C Antibody Nonreactive (Nonreactive)
== END 2024-08-20 08:27 | disposition home or self-care (01) ==
LOC: HO.HHCL 08:26
PROVIDERS: Visit Provider Internal Medicine Geriatric Medicine
DX: E11.69 Type 2 diabetes mellitus with other specified complication (principal); I10 Essential (primary) hypertension; Z11.59 Encounter for screening for other viral diseases; N40.0 Benign prostatic hyperplasia without lower urinary tract symptoms
CPT/HCPCS: 36415; 80053; 80061; 82043; 82570; 84153; 85025; 86803

== ENCOUNTER 2025-07-13 08:32 | Outpatient (REF) | payer MEDICARE, MEDICAID, SELFPAY ==
--- OUTSIDE RECORDS SUMMARY | 2025-07-08 10:30 | XMS_ITS | Encounter Summary ---
Author Organization [employer] Address [address] [place] [address] Care Team Providers Care Clam Shovel Operator Name Role Phone Name, Baldomero GOYAL Primary Care Provider [phone] Reason for Visit * Reason Comments Diabetes Encounter Details Date Type Department Care Team (Late st Contact Info) Description 07/08/2025 10:30 AM EDT Office Visit [facility] MEDICINE [address] [place], [place] [phone] Name, MD Baldomero [address] [place], [place] [phone] Type 2 diabetes mellitus with other specified complication, without long-term current use of insulin ([facility]) (Primary Dx); Essential hypertension; Old myocardial infarction; Encounter for immunization Social History Tobacco Use Types Packs/Day Years Used Date Smoking Tobacco: Former Cigarettes Passive Smoke Exposure: Never Smokeless Tobacco: Never Tobacco Cessation:Counseling Given: Not Answered Alcohol Use Standard Drinks/Week Comments Never 0 (1 standard drink = 0.6 oz pur e alcohol) Depression Answer Date Recorded Patient Health Questionnaire-9 Score 0 07/08/2025 Patient Health Questionnaire-9 Score 0 07/08/2025 Last PHQ-9: Questionnaire Data Not on file 0 07/08/2025 Housing Stability Answer Date Recorded What is your housing situation today? I have denzel caro 11/12/[address] you li ve. Do you have problems with any of the following? None of the above 11/12/2023 Food Insecurity Answer Date Recorded Within the past 12 months, y ou worried that your food would run out before you got money to buy more: Never True 11/12/2023 Within the past 12 months,th e food you bought just didn't last and you didn't have enough money to get more: Never True Transportation Answer Date Recorded In the past 12 months, has l ack of transportation kept you from medical appts, meetings, work or from getting things needed for daily living? No 11/12/2023 Utilities Answer Date Recorded In the past 12 months, has t he electric, gas, oil or water company threatened to shut off services in your home? No 11/12/2023 Depression Answer Date Recorded Patient Health Questionnaire-2 Score 0 07/08/2025 Sex and Gender Information Value Date Recorded Sex Assigned at Male 08/13/2022 10:14 AM EDT Legal Sex Male 10:14 AM EDT Gender Identity Male 08/13/2022 10:14 AM EDT Sexual Orientation Straight 08/13/2022 10 :14 AM EDT documented as of this encounter Last Filed Vital Signs Vital Sign Reading Time Taken Comments Blood Pressure 128/72 07/08/2025 10:38 AM EDT Pulse 67 07/08/2025 10:38 AM EDT Temperature 36.2 C (97.1 F) 07/08/2025 10:38 AM EDT Respiratory Rate 12 07/08/2025 10:38 AM EDT Oxygen Saturation 97% 07/08/2025 10:38 AM EDT Inhaled Oxygen Concentration - - Weight 85 kg (187 lb 6.4 oz) 07/08/2025 10:38 AM EDT Height 167.6 cm (5' 6 ) 07/08/2025 10:38 AM EDT Body Mass Index 30.25 07/08/2025 10:38 AM EDT documented in this encounter Functional Status * Over the past 2 weeks, how often have you been bothered by any of the following problems? Question Answer Date of Assessment Author Patient Health Questionnaire-2 Score 0 07/08/2025 10:40 AM EDT Ry Medina [place] * Little interest or pleasure in doing things Answer Date of Assessment Author Not at all 07/08/2025 10:40 AM EDT Corazon Medina MA * Feeling down, depressed, or hopeless Answer Date of Assessment Author Not at all 07/08/2025 10:40 AM EDT Corazon Medina MA * Trouble falling or staying asleep, or sleeping too much Answer Date of Assessment Author Not at all 07/08/2025 10:40 AM Corazon Mccarthy [place] * Feeling tired or having little energy Answer Date of Assessment Author Not at all 07/08/2025 10:40 AM Corazon Mccarthy [place] * Poor appetite or overeating Answer Date of Assessment Author Not at all 07/08/2025 10:40 AM Corazon Mccarthy MA * Feeling bad about yourself - or that you are a failure or have let yourself or your family down Answer Date of Assessment Author Not at all 07/08/2025 10:40 AM Corazon Mccarthy [place] * Trouble concentrating on things, such as reading the newspaper or watching television Answer Date of Assessment Author Not at all 07/08/2025 10:40 AM Corazon Mccarthy MA * Moving or speaking so slowly that other people could have noticed? Or the opposite - being so fidgety or restless that you have been moving around a lot more than usual. Answer Date of Assessment Author Not at all 07/08/2025 10:40 AM Corazon Mccarthy MA * Thoughts that you would be better off or hurting yourself in some way Answer Date of Assessment Author Not at all 07/08/2025 10:40 AM Corazon Mccarthy MA * Patient Health Questionnaire-9 Score Answer Date of Assessment Author 0 07/08/2025 10:40 AM Corazon Mccarthy MA * Over the last 2 weeks, how often have you been bothered by any of the following problems? Question Answer Date of Assessment Author Feeling nervous, anxious, or on edge 0 07/08/2025 10:40 AM Jaky Mccarthy MA Not being able to stop or control worrying 0 07/08/2025 10:40 AM Jaky Mccarthy MA Worrying too much about different things 0 07/08/2025 10:40 AM Jaky Mccarthy MA Trouble relaxing 0 07/08/2025 10:40 AM EDT Corazon Medina MA Being so restless that it is hard to sit still 0 07/08/2025 10:40 AM EDT Jaky Medina MA Becoming easily annoyed or irritable 0 07/08/2025 10:40 AM EDT Jaky Medina MA Feeling afraid as if something awful might happen 0 07/08/2025 10:40 AM EDT Corazon Antonio MA AMY-7 Total Score 0 07/08/2025 10:40 AM EDT Corazon Medina MA documented as of this encounter Progress Notes * Baldomero Jolly MD - 07/08/2025 10:30 AM EDT Subjective Patient ID: Chad Robert is a 75 y.o. male who presents for Diabetes. Patient is doing very well. He is exercising. He has not smoked in many years. He is not having anychest pains or shortness of breath. He does not bring his glucose meter but there have been significant improvement of his hemoglobin A1c. He is avoiding sweets. He has been using his medications regularly. He agreed with flu vaccination today. He agreeable evaluation with fasting blood work next week. Review of Systems Constitutional: Negative for chills, fatigue and fever. HENT: Negative for sore throat. Respiratory: Negative for cough, chest tightness and shortness of breath. Cardiovascular: Negative for chest pain, palpitations and leg swelling. Gastrointestinal: Negative for abdominal pain and blood in stool. Objective Vitals: 07/08/25 1038 BP: 128/72 BP Location: Left arm Patient Position: Sitting BP Cuff Size: Adult Pulse: 67 Resp: 12 Temp: 97.1 ??F (36.2 ??C) TempSrc: Temporal SpO2: 97% Weight: 187 lb 6.4 oz (85 kg) Height: 5' 6 (1.676 m) Physical Exam Constitutional: Appearance: Normal appearance. Cardiovascular: Rate and Rhythm: Normal rate and regular rhythm. Heart sounds: No murmur heard. Pulmonary: Effort: Pulmonary effort is normal. No respiratory distress. Breath sounds: No wheezing, rhonchi or rales. Abdominal: Palpations: Abdomen is soft. Tenderness: There is no abdominal tenderness. Musculoskeletal: Right lower leg: No edema. Left lower leg: No edema. Neurological: Mental Status: He is alert. Lab Results Component Value Date HGBA1C 6.8 (A) 07/08/2025 HGBA1C 9.3 (A) 01/22/2025 HGBA1C 7.2 (A) 08/19/2024 HGBA1C 7.2 (A) 05/18/2024 HGBA1C 7.1 (A) 02/12/2024 HGBA1C 6.8 (A) 08/14/2023 HGBA1C 6.6 (A) 12/31/2022 HGBA1C 6.8 (A) 10/04/2022 Assessment/Plan Diagnoses and all orders for this visit: Type 2 diabetes mellitus with other specified complication, without long-term current use of insulin ([facility]) Comments: Patient is congratulated. He is encouraged to continue his current diet and exercise regimen. Continue current dose of baby aspirin, atorvastatin, Jardiance, metoprolol, metformin, Diovan. Check fasting blood work listed below. Flu vaccine today. Orders: - POCT Glucose - POCT Hgb A1c - CBC auto differential; Future - Comprehensive Metabolic Panel; Future - Lipid Panel, Standard; Future - Albumin, Random Urine W/Creatinine; Future - glucose blood (FREESTYLE LITE) test strip; TEST BLOOD SUGAR ONCE DAILY - TRUEplus Lancets 33G misc; TEST BLOOD SUGAR EVERY DAY Essential hypertension - CBC auto differential; Future - Comprehensive Metabolic Panel; Future - Lipid Panel, Standard; Future - Albumin, Random Urine W/Creatinine; Future Old myocardial infarction - CBC auto differential; Future - Comprehensive Metabolic Panel; Future - Lipid Panel, Standard; Future - Albumin, Random Urine W/Creatinine; Future Encounter for immunization - FLU VACCINE TRIVALENT HIGH DOSE [id number] (Fluzone) 65 yrs + - CBC auto differential; Future - Comprehensive Metabolic Panel; Future - Lipid Panel, Standard; Future - Albumin, Random Urine W/Creatinine; Future Other orders - empagliflozin (Jardiance) 10 MG; Take 1 tablet (10 mg) by mouth Once per day. Future Appointments Date Time Provider Department Center 08/18/2025 2:00 PM Manju Tavera OD [facility] documented in this encounter Plan of Treatment Upcoming Encounters Date Type Department Care Team (Late st Contact Info) Description 08/18/2025 2:00 PM EST Office Visit [facility] OPTOMETRY [address] [place] [address] Manju Tavera, OD [address] [place] [address] Scheduled Orders Name Type Priority Associated Diagnoses Orde r Schedule CBC auto differential Lab Routine Type 2 diabetes mellitus with other specified complication, without long-term current use of insulin ([facility]) Encounter for immunization Old myocardial infarction Essential hypertension Expected: 07/08/2025 (Approximate), Expires: 07/08/2026 Comprehensive Metabolic Panel Lab Routine Type 2 diabetes mellitus with other specified complication, without long-term current use of insulin ([facility]) Encounter for immunization Old myocardial infarction Essential hypertension Expected: 07/08/2025 (Approximate), Expires: 07/08/2026 Lipid Panel, Standard Lab Routine Type 2 diabetes mellitus with other specified complication, without long-term current use of insulin ([facility]) Encounter for immunization Old myocardial infarction Essential hypertension Expected: 07/08/2025 (Approximate), Expires: 07/08/2026 Albumin, Random Urine W/Creatinine Lab Routine Type 2 diabetes mellitus with other specified complication, without long-term current use of insulin ([facility]) Encounter for immunization Old myocardial infarction Essential hypertension Expected: 07/08/2025 (Approximate), Expires: 07/08/2026 documented as of this encounter Procedures Procedure Name Priority Date/Time Associated Diagnosis Comments POCT GLYCATED HEMOGLOBIN, TOTAL Routine 07/08/2025 10:40 AM EDT Type 2 diabetes mellitus with other specified complication, without long-term current use of insulin ([facility]) POCT GLUCOSE Routine 07/08/2025 10:39 AM EDT Type 2 diabetes mellitus with other specified complication, without long-term current use of insulin ([facility]) documented in this encounter Results * (ABNORMAL) POCT Hgb A1c (07/08/2025 10:40 AM EDT) Hemoglobin A1C 6.8(A) 4.0 - 5.7 % QC Media Lot # [id number] Lot# Expiration Date 41,627 Blood 07/08/2025 10:4 0 AM EDT us Baldomero Jolly MD POINT OF CARE TEST ENTER/EDIT OR DERABLES Final Result * POCT Glucose (07/08/2025 10:39 AM EDT) Glucose Blood, POC 108 60 - 200 mg/dL QC Media Lot # [id number] Lot# Expiration Date 31,126 Blood Capillary blood specimen / Unknown 07/08/2025 10:39 AM EDT us Baldomero Jolly MD POINT OF CARE TEST ENTER/EDIT OR DERABLES Final Result documented in this encounter Visit Diagnoses Diagnosis Type 2 diabetes mellitus with other specified complication, without long-term current use of insulin (HCC)- Primary Essential hypertension Unspecified essential hypertension Old myocardial infarction Encounter for immunization documented in this encounter Additional Health Concerns Assessment Noted Time PHQ-9 Depression Total Score: 0 07/08/20 10:40 AM EDT documented as of this encounter Care Teams Clam Shovel Operator Relationship Specialty Start Date End Date Name, MD Baldomero [address] [place] [address] PCP - General Family Medicine 08/09/16 documented as of this encounter
--- OUTSIDE RECORDS SUMMARY | 2025-07-13 08:52 | XMS_ITS | Encounter Summary ---
Author Organization [employer] Address [address] [place] [address] Care Team Providers Care Joinery Setter Out Name Role Phone Name, Baldomero GOYAL Primary Care Provider [phone] Reason for Visit * Reason Comments Med Refill Encounter Details Date Type Department Care Team (Late st Contact Info) Description 02/20/2023 Refill [facility] MEDICINE [address] [place] [address] Marilee Silveira FNP [address] [place], [place] [phone] Social History Tobacco Use Types Packs/Day Years Used Date Smoking Tobacco: Never Smokeless Tobacco: Never Depression Answer Date Recorded Patient Health Questionnaire-9 Score 0 10/04/2022 Depression Answer Date Recorded Patient Health Questionnaire-2 Score 0 10/04/2022 Sex and Gender Information Value Date Recorded Sex Assigned at Male 08/13/2022 10:14 AM EDT Legal Sex Male 10:14 AM EDT Gender Identity Male 08/13/2022 10:14 AM EDT Sexual Orientation Straight 08/13/2022 10 :14 AM EDT documented as of this encounter Plan of Treatment Upcoming Encounters Date Type Department Care Team (Late st Contact Info) Description 08/18/2025 2:00 PM EST Office Visit [facility] OPTOMETRY [address] [place], [place] [phone] Liang, Manju, OD [address] [place] [address] documented as of this encounter Visit Diagnoses Not on filedocumented in this encounter Additional Health Concerns Assessment Noted Time PHQ-9 Depression Total Score: 0 10/04/20 22 9:10 AM EST documented as of this encounter Care Teams Joinery Setter Out Relationship Specialty Start Date End Date Name, MD Baldomero [address] [place] [address] PCP - General Family Medicine 08/09/16 documented as of this encounter
--- OUTSIDE RECORDS SUMMARY | 2025-07-13 08:52 | XMS_ITS | Encounter Summary ---
Author Organization [employer] Address [address] [place] [address] Care Team Providers Care Dip Filler Name Role Phone Name, Baldomero GOYAL Primary Care Provider [phone] Reason for Visit * Reason Comments Med Refill Encounter Details Date Type Department Care Team (Late st Contact Info) Description 10/09/2023 Refill [facility] [address] [place], [place] [phone] Name, MD Baldomero [address] [place], [place] [phone] Type 2 diabetes mellitus with other specified complication, without long-term current use of insulin ([facility]) Social History Tobacco Use Types Packs/Day Years Used Date Smoking Tobacco: Former Cigarettes Passive Smoke Exposure: Never Smokeless Tobacco: Never Alcohol Use Standard Drinks/Week Comments Never 0 (1 standard drink = 0.6 oz pur e alcohol) Depression Answer Date Recorded Patient Health Questionnaire-9 Score 0 10/04/2022 Housing Stability Answer Date Recorded What is your housing situation today? I have denzel caro 08/12/[address] you li ve. Do you have problems with any of the following? None of the above 08/12/2023 Food Insecurity Answer Date Recorded Within the past 12 months, y ou worried that your food would run out before you got money to buy more: Never True 08/12/2023 Within the past 12 months,th e food you bought just didn't last and you didn't have enough money to get more: Never True Transportation Answer Date Recorded In the past 12 months, has l ack of transportation kept you from medical appts, meetings, work or from getting things needed for daily living? No 08/12/2023 Utilities Answer Date Recorded In the past 12 months, has t he electric, gas, oil or water company threatened to shut off services in your home? No 08/12/2023 Depression Answer Date Recorded Patient Health Questionnaire-2 [...] Description 08/18/2025 2:00 PM EST Office Visit [facility] OPTOMETRY [address] [place] [address] Liang, Manju, OD [address] [place] [address] documented as of this encounter Visit Diagnoses Diagnosis Type 2 diabetes mellitus with other specified complication, without long-term current use of insulin (HCC) documented in this encounter Additional Health Concerns Assessment Noted Time PHQ-9 Depression Total Score: 0 10/04/20 22 9:10 AM EST documented as of this encounter Care Teams Dip Filler Relationship Specialty Start Date End Date Name, MD Baldomero [address] [place] [address] PCP - General Family Medicine 08/09/16 documented as of this encounter
--- OUTSIDE RECORDS SUMMARY | 2025-07-13 08:52 | XMS_ITS | Encounter Summary ---
Author Organization [employer] Address [address] [place] [address] Care Team Providers Care Psychiatric Clinician Name Role Phone Name, Baldomero GOYAL Primary Care Provider [phone] Reason for Visit * Reason Onset Date Comments Med Refill 12/31/2023 Patient walked i n requesting test strips , patient stated he doesn't have any left. And been asking for test strips for over a month. Encounter Details Date Type Department Care Team ([facility] st Contact Info) Description 12/31/2023 Telephone [facility] MEDICINE [address] [place], [place] [phone] Name, MD Baldomero [address] [place], [place] [phone] Med Refill (Patient walked in requesting test strips , patient stated he doesn't have any left. And been asking for test strips for over a month. ) Social History Tobacco Use Types Packs/Day Years Used Date Smoking Tobacco: Former Cigarettes Passive Smoke Exposure: Never Smokeless Tobacco: Never Alcohol Use Standard Drinks/Week Comments Never 0 (1 standard drink = 0.6 oz pur e alcohol) Depression Answer Date Recorded Patient Health Questionnaire-9 Score 0 11/12/2023 Patient Health Questionnaire-9 Score 0 11/12/2023 Last PHQ-9: Questionnaire Data Not on file 0 11/12/2023 Housing Stability Answer Date Recorded What is [...] Date Recorded Patient Health Questionnaire-2 Score 0 11/12/2023 Sex and Gender Information Value Date Recorded Sex Assigned at Male 08/13/2022 10:14 AM EDT Legal Sex Male 10:14 AM EDT Gender Identity Male 08/13/2022 10:14 AM EDT Sexual Orientation Straight 08/13/2022 10 :14 AM EDT documented as of this encounter Miscellaneous Notes * Telephone Encounter - Scooter Stern RN - 01/09/2024 4:37 PM EDT T/C to pt. Through [employer] interpreters id - [id number] to inform that pharmacy is requesting Med - B form to dispense test trips, pharmacy asks to send to PCP for sign. NO answer. LVM to call back on [phone] . * Telephone Encounter - Ayala Weller - 01/09/2024 2:14 PM EDT Patient walked in requesting test strips , patient stated he doesn't have any left. And been askingfor test strips for over a month. * Telephone Encounter - Mary Morel LPN - 12/31/2023 11:50 AM EDT Test strips were sent to [facility] on 10/09/23 #200 with 3 refills. * Telephone Encounter - Grace Sharona - 12/31/2023 11:35 AM EDT TC from pt requesting medication refill. Medications needing refill : glucose blood (FREESTYLE LITE) test strip To be sent to: [facility] - [place], [place] - [address] [place] [address] documented in this encounter Plan of Treatment Upcoming Encounters Date Type Department Care Team (Late st Contact Info) Description 08/18/2025 2:00 PM EST Office Visit [facility] OPTOMETRY [address] [place] [address] Manju Tavera, OD [address] [place] [address] documented as of this encounter Visit Diagnoses Not on filedocumented in this encounter Additional Health Concerns Assessment Noted Time PHQ-9 Depression Total Score: 0 11/12/19 24 10:00 AM EST documented as of this encounter Care Teams Psychiatric Clinician Relationship Specialty Start Date End Date Name, MD Baldomero [address] [place] [address] PCP - General Family Medicine 08/09/16 documented as of this encounter
--- OUTSIDE RECORDS SUMMARY | 2025-07-13 08:52 | XMS_ITS | Clinical Summary ---
Author Organization [employer] Address [address] [facility] [address] [place] [address] Care Team Providers Care Bookkeeping Machine Mechanic Name Role Phone Name, Baldomero GOYAL Primary Care Provider [phone] Allergies No known active allergies Medications Acetaminophen 500 MG capsule Take 1 capsule by mouth every 8 (eight) hours. 11/29/19 22 Active Blood Pressure kit For home use twice a day 1 kit 02/12/20 24 Active atorvastatin (Lipitor) 40 MG tabletIndicatio ns:Type 2 diabetes mellitus with other specified complication, without long-term current use of insulin (HCC) Take 1 tablet (40 mg) by mouth Once per day. 90 tablet 3 01/23/20 25 Active cholecalciferol (D3 Super Strength) 50 MCG (2000 UT) capsuleIndicati ons:Vitamin D deficiency Take 1 capsule (50 mcg) by mouth Once per day. 90 capsule 3 01/23/20 25 Active aspirin (Aspirin Low Dose) 81 MG EC tabletIndicatio ns:Type 2 diabetes mellitus with other specified complication, without long-term current use of insulin (HCC) Take 1 tablet (81 mg) by mouth in the morning. 90 tablet 1 01/23/20 25 Active tamsulosin (Flomax) 0.4 MG 24 hr capsuleIndicati ons:Type 2 diabetes mellitus with other specified complication, without long-term current use of insulin (HCC),Essential hypertension TAKE 1 CAPSULE BY MOUTH ONCE DAILY 90 capsule 3 01/27/20 25 Active metoprolol succinate XL (Toprol-XL) 100 MG 24 hr tabletIndicatio ns:Type 2 diabetes mellitus with other specified complication, without long-term current use of insulin ([facility]),Essential hypertension TAKE 1 TABLET BY MOUTH ONCE DAILY. DO NOT BREAK, CRUSH, DISSOLVE OR CHEW 90 tablet 3 01/27/20 25 Active valsartan (Diovan) 160 MG tabletIndicatio ns:Type 2 diabetes mellitus with other specified complication, without long-term current use of insulin ([facility]),Essential hypertension TAKE 1 TABLET BY MOUTH ONCE DAILY 90 tablet 01/27/20 25 Active metFORMIN (Glucophage) 500 MG tabletIndicatio ns:Type 2 diabetes mellitus with other specified complication, without long-term current use of insulin ([facility]),Essential hypertension TAKE 1/2 TABLET BY MOUTH TWICE DAILY IN THE MORNING AND EVENING WITH MEALS 90 tablet 3 04/20/20 25 Active hydrocortisone 1 % creamIndication s:Type 2 diabetes mellitus with other specified complication, without long-term current use of insulin ([facility]) APPLY A THIN LAYER TO AFFECTED AREA(S) TWICE DAILY DIRECTED 56 g 2 06/25/20 25 Active empagliflozin (Jardiance) 10 MG Take 1 tablet (10 mg) by mouth Once per day. 30 tablet 2 07/08/20 25 Active glucose blood (FREESTYLE LITE) test stripIndication s:Type 2 diabetes mellitus with other specified complication, without long-term current use of insulin ([facility]) TEST BLOOD SUGAR ONCE DAILY 100 each 07/08/20 25 Active TRUEplus Lancets 33G miscIndications :Type 2 diabetes mellitus with other specified complication, without long-term current use of insulin ([facility]) TEST BLOOD SUGAR EVERY DAY 100 each 07/08/20 25 Active TRUEplus Lancets 33G miscIndications :Type 2 diabetes mellitus with other specified complication, without long-term current use of insulin ([facility]) TEST BLOOD SUGAR EVERY DAY 100 each 03/02/20 24 025 Discontinued(Re order (will not trigger notification to Pharmacy)) hydrocortisone 1 % creamIndication s:Type 2 diabetes mellitus with other specified complication, without long-term current use of insulin ([facility]) APPLY A THIN LAYER TOPICALLY TO AFFECTED AREA(S) TWICE DAILY DIRECTED 56 g 2 10/09/20 24 025 Discontinued glucose blood (FREESTYLE LITE) test stripIndication s:Type 2 diabetes mellitus with other specified complication, without long-term current use of insulin ([facility]) TEST BLOOD SUGAR ONCE DAILY 100 each 3 01/14/20 025 Discontinued(Re order (will not trigger notification to Pharmacy)) Jardiance 10 MG TAKE 1 TABLET BY MOUTH EVERY DAY 30 tablet 2 05/05/20 025 Discontinued(Re order (will not trigger notification to Pharmacy)) Active Problems Problem Noted Date Diagnosed Date 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/26/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 Type 2 diabetes mellitus 09/22/2022 Ureteric stone 09/22/2022 History of pleural empyema 09/22/2022 Vitamin D deficiency 12/31/2018 Obesity 10/30/2017 Essential hypertension 08/13/2016 Old myocardial infarction 08/13/2016 Resolved Problems Problem Noted Date Diagnosed Date Resolved Date Prediabetes 05/16/2017 05/01/2023 Encounters Date Type Department Care Team Description 07/08/2025 10:30 AM EDT Office Visit [facility] [address] [place] [address] NameBaldomero MD Type 2 diabetes mellitus with other specified complication, without long-term current use of insulin ([facility]) (Primary Dx); Essential hypertension; Old myocardial infarction; Encounter for immunization 07/08/2025 Travel 07/07/2025 Telephone [facility] [address] [place] [address] Baldomero Jolly MD CHARTPREP 06/25/2025 Refill [facility] [address] [place] [address] Baldomero Jolly MD Type 2 diabetes mellitus with other specified complication, without long-term current use of insulin ([facility]/HCC) 05/05/2025 Refill [facility] [address], [place] [phone] Baldomero Jolly MD 04/18/2025 Refill [facility] [address], [place] [phone] Baldomero Jolly MD Type 2 diabetes mellitus with other specified complication, without long-term current use of insulin ([facility]); Essential hypertension from Last 3 Months Immunizations Immunization Administration Dates Next Due Influenza High-dose Quadriva lent Preservative Free 08/14/2023,08/11/2021 Influenza injectable quadriv alent IIV4 with preservative 10/04/2022,07/30/2017,10/17/2016 Influenza, High Dose Seasona l, Preservative Free 07/08/2025,08/19/2024,08/03/2019,06/30 Pneumococcal Conjugate PCV 13 09/29/2018 Pneumococcal Polysaccharide PPSV23 08/28/2016 Tdap 10/17/2016 Social History Tobacco Use Types Packs/Day Years [...] Orientation Straight 08/13/2022 10 :14 AM EDT Last Filed Vital Signs Vital Sign Reading [...] Mass Index 30.25 07/08/2025 10:38 AM EDT Plan of Treatment Upcoming Encounters Date Type Department Care Team (Late st Contact Info) Description 08/18/2025 2:00 PM EST Office Visit [facility] [address] [place], [place] [phone] Liang, Manju, OD [address] [place] [address] Health Maintenance Due Date Last Done Comments CT Colonography 1951 Colonoscopy 1950 Colorectal Cancer Screening 1950 Dental Prophylaxis 1951 FIT DNA/Cologuard 1951 FIT 1951 FOBT 1950 Sigmoidoscopy 1950 Zoster Vaccines (1 of 2) 2001 RSV Patients and Patients Aged 60 years or older (1 - Risk 60-74 years 1-dose series) 2011 Dental X-Ray: Bitewings 12/20/2017 12/19/2016 Dental Oral Exam 03/02/2021 09/01/2020, , 12/19/2016 Dental X-Ray: Full Mouth 06/11/2021 06/10/2018, 0305/2017 Diabetes: Foot Exam 08/14/2024 08/14/2023, 08/14/2023, 08/14/2023, Additional history exists SDOH Screening 11/12/2024 11/12/2023 COVID-19 Vaccine ( season) 2025 Diabetes: Urine Protein Screening 08/20/2025 08/20/2024, 07/19/2023, 07/19/2023, Additional history exists Lipid Panel 08/20/2025 08/20/2024, 01/13, 03/06/2022, Additional history exists Diabetes: Hemoglobin A1C 01/05/2026 025, 01/22/2025, 08/19/2024, Additional history exists Alcohol/Substance Use Screening 07/08/2026 07/08/2025 Depression Screening 07/08/2026 07/08/2025, 07/08/20 Tobacco Screening 07/08/2026 07/08/2025 DTaP/Tdap/Td Vaccines (2 - Td or Tdap) 10/17/2026 10/17/2016 Eye Exam 02/15/2027 02/15/2025, 03/2023, 08/19/2023, Additional history exists Pneumococcal Vaccine: 50+ Years Completed 09/29/2018, 08/28/2016 Hepatitis C Screening Completed 08/20/2024 Influenza Vaccine Completed 07/08/2025, , 08/14/2023, Additional history exists HIB Vaccines Aged Out No longer eligi ble based on patient's age to complete this topic HPV Vaccines Aged Out No longer eligi ble based on patient's age to complete this topic Hepatitis A Vaccines Aged Out No long er eligible based on patient's age to complete this topic Hepatitis B Vaccines Aged Out No long er eligible based on patient's age to complete this topic IPV Vaccines Aged Out No longer eligi ble based on patient's age to complete this topic Meningococcal B Vaccine Aged Out No l onger eligible based on patient's age to complete this topic Meningococcal Vaccine Aged Out No snehal edgar eligible based on patient's age to complete this topic RSV under 20 months Aged Out No longe r eligible based on patient's age to complete this topic Rotavirus Vaccines Aged Out No longer eligible based on patient's age to complete this topic Procedures Procedure Name Priority Date/Time Associated Diagnosis Comments POCT GLYCATED HEMOGLOBIN, TOTAL Routine 07/08/2025 10:40 AM EDT Type 2 diabetes mellitus with other specified complication, without long-term current use of insulin ([facility]) POCT GLUCOSE Routine 07/08/2025 10:39 AM EDT Type 2 diabetes mellitus with other specified complication, without long-term current use of insulin (CMS/HCC) HEPATITIS C AB W/REFL TO HCV RNA, QN, PCR Routine 08/20/2024 8:34 AM EST Need for hepatitis C screening test ALBUMIN, RANDOM URINE W/CREATININE Routine 08/20/2024 8:34 AM EST Type 2 diabetes mellitus with other specified complication, without long-term current use of insulin (CMS/HCC) Essential hypertension LIPID PANEL, STANDARD Routine 08/20/2024 8:34 AM EST Type 2 diabetes mellitus with other specified complication, without long-term current use of insulin (CMS/HCC) Essential hypertension PERIODIC ORAL EVALUATION - ESTABLISHED PATIENT Routine 09/01/2020 12:00 AM EST PANORAMIC RADIOGRAPHIC IMAGE Routine 06/10/2018 12:00 AM EDT INTRAORAL - COMPLETE SERIES OF RADIOGRAPHIC IMAGES Routine 12/19/2016 12:00 AM EST from Last 3 Months or Most Recently Relevant to Health Maintenance Results * (ABNORMAL) POCT Hgb A1c (07/08/2025 [...] TEST ENTER/EDIT OR DERABLES Final Result * Albumin, Random Urine W/Creatinine (08/20/2024 8:34 AM EST) Creatinine, Urine 139.62 mg/dL [facility] Microalbumin Urine 36.0 mg/L [facility] Microalbum Creatinine Ratio Ur 25.7 <30 ug/mg cr [facility] Comment:Albumin/Creatinine R atio Reference Ranges: Normal: < 30 ug/mg creatinine Microalbuminuria: 30 - 300 ug/mg creatinineClinical Albuminuria: > 300 ug/mg creatinine Urine (Urine, Random) 08/20/2024 8:34 AM EST 08/20/2024 11:08 AM EST us Baldomero Jolly MD LAB URINE ORDERABLES Final Resul t Performing Organization Address [facility] Co de Phone Number [facility] [address] [place] [phone] * Hepatitis C Antibody with Reflex to HCV, RNA, Quantitative, Real-Time PCR (08/20/2024 8:34 AM EST) Hepatitis C Antibody Nonreactive Nonreactive [facility] Comment:Antibodies to HCV no t detected; does not exclude early acuteHCV infection. Blood Venous blood specimen / Unknown 08/20/2024 8:34 AM EST 08/20/2024 11:27 AM EST us Baldomero Jolly MD LAB BLOOD ORDERABLES Final Resul t Performing Organization Address City/[facility] Co de Phone Number [facility] [address] [place] [phone] * (ABNORMAL) Lipid Panel, Standard (08/20/2024 8:34 AM EST) Triglycerides 98 <150 mg/dL [facility] Comment:Desirable Triglyceri de: less than 150 mg/dLBorderline High Triglyceride 150-199 mg/dLHigh Triglyceride: 200-499 mg/dLVery High Triglyceride: greater than or equal to 5OO mg/dL Cholesterol 124 <200 mg/dL [facility] Comment:Desirable Cholestero l: less than 200 mg/dLBorderline High Cholesterol: 200-239 mg/dLHigh Cholesterol: greater than 239 mg/dL LDL Cholesterol Calculated 70 <100 mg/dL [facility] Comment:Desirable LDL: less than 100 mg/dLNear Optimal/Above Optimal LDL: 110- 129 mg/dLBorderline High LDL: 130-159 mg/dLHigh LDL: 160-189 mg/dLVery High LDL: greater than or equal to 190 mg/dL HDL Cholesterol 35(L) >40 mg/dL [facility] Comment:Desirable HDL: great er than 40 mg/dL Note: This HDL assay may give artificially low results in patients with liver disease. Blood Venous blood specimen / Unknown 08/20/2024 8:34 AM EST 08/20/2024 11:30 AM EST us Baldomero Name LAB BLOOD ORDERABLES Final Resul t [facility] [address] [place] [phone] from Last 3 Months or Most Recently Relevant to Health Maintenance Insurance [facility] STANDARD MEDICARE [facility] ST[facility] ADULT Care Teams Bookkeeping Machine Mechanic Relationship Specialty Start Date End Date Name, MD Baldomero [address] [place] [phone] PCP - General Family Medicine 08/09/16
--- OUTSIDE RECORDS SUMMARY | 2025-07-13 08:52 | XMS_ITS | Encounter Summary ---
Author Organization [employer] Address [address] [facility] [address] [place] [address] Care Team Providers Care Edi Analyst Name Role Phone Name, Baldomero GOYAL Primary Care Provider [phone] Encounter Details Date Type Department Care Team (Late Contact Info) Description 02/20/2023 Orders Only [facility] [address] [place], [place] [phone] Mary Morel LPN Social History Tobacco Use Types Packs/Day Years [...] Description 08/18/2025 2:00 PM EST Office Visit [facility] [address] [place] [address] Liang, Manju, OD [address] [place], [place] [phone] documented as of this encounter Visit Diagnoses Not on filedocumented in this encounter Additional Health Concerns Assessment Noted Time PHQ-9 Depression Total Score: 0 10/04/20 9:10 AM EST documented as of this encounter Care Teams Edi Analyst Relationship Specialty Start Date End Date Name, MD Baldomero [address] [place] [address] PCP - General Family Medicine 08/09/16 documented as of this encounter
--- OUTSIDE RECORDS SUMMARY | 2025-07-13 08:52 | XMS_ITS | Encounter Summary ---
Author Organization [employer] Address [address] [facility] [address] [facility] [address] [place] [address] Care Team Providers Care Palliative Care Nurse Practitioner Name Role Phone Name, Baldomero GOYAL Primary Care Provider [phone] Encounter Details Date Type Department Care Team (Latest Contact Info) Description 07/08/2025 Travel Social History Tobacco Use Types Packs/Day Years [...] AM EDT documented as of this encounter Functional Status * Over the past 2 weeks, how often have you been bothered by any of the following problems? Question Answer Date of Assessment Author Patient Health Questionnaire-2 Score 0 07/08/2025 10:40 AM EDT Ry Medina [place] * Little interest or pleasure in doing things Answer Date of Assessment Author Not at all 07/08/2025 10:40 AM TRINIT Corazon Medina MA * Feeling down, depressed, or hopeless Answer Date of Assessment Author Not at all 07/08/2025 10:40 AM Corazon Mccarthy MA * Trouble falling or staying asleep, [...] MA Trouble relaxing 0 07/08/2025 10:40 AM Corazon Mccarthy MA Being so restless that it is hard to sit still 0 07/08/2025 10:40 AM Jaky Mccarthy MA Becoming easily annoyed or irritable 0 07/08/2025 10:40 AM Jaky Mccarthy MA Feeling afraid as if something awful might happen 0 07/08/2025 10:40 AM Corazon Emery MA AMY-7 Total Score 0 07/08/2025 10:40 AM Corazon Mccarthy MA documented as of this encounter Plan of Treatment Upcoming Encounters Date Type Department Care Team (Late st Contact Info) Description 08/18/2025 2:00 PM EST Office Visit [facility] [address] [place] [address] Manju Tavera, OD [address] [place] [address] documented as of this encounter Visit Diagnoses Not on filedocumented in this encounter Additional Health Concerns Assessment Noted Time PHQ-9 Depression Total Score: 0 07/08/20 25 10:40 AM EDT documented as of this encounter Care Teams Palliative Care Nurse Practitioner Relationship Specialty Start Date End Date Name, MD Baldomero [address] [place] [address] PCP - General Family Medicine 08/09/16 documented as of this encounter
--- OUTSIDE RECORDS SUMMARY | 2025-07-13 08:52 | XMS_ITS | Encounter Summary ---
Author Organization [employer] Address [address] [place] [address] Care Team Providers Care Technical Illustrator Name Role Phone Name, Baldomero GOYAL Primary Care Provider [phone] Reason for Visit * Reason Comments Med Refill Encounter Details Date Type Department Care Team (Late st Contact Info) Description 02/10/2025 Refill [facility] [address] [place], [place] [phone] Name, MD Baldomero [address] [place] [address] Social History Tobacco Use Types Packs/Day Years [...] 08/18/2025 2:00 PM EST Office Visit [facility] [address] [place] [address] Liang, Manju, OD [address] [place] [address] documented as of this encounter Visit Diagnoses Not on filedocumented in this encounter Additional Health Concerns Assessment Noted Time PHQ-9 Depression Total Score: 0 11/12/19 24 10:00 AM EST documented as of this encounter Care Teams Technical Illustrator Relationship Specialty Start Date End Date Name, MD Baldomero [address] [place] [address] PCP - General Family Medicine 08/09/16 documented as of this encounter
[2025-07-13 11:59] LABS: MANUAL DIFF FLAG NO
[2025-07-13 12:18] LABS: Microalbum/Creatinine Ratio Ur 35.7 ug/mg cr (<30)
[2025-07-13 12:23] LABS: Hematocrit 44.0 % (42.0-52.0); Hemoglobin 14.8 g/dl (14.0-18.0); Imm Gran Abs Auto 0.08 X10*3/uL (0.00-0.03); Imm Gran Pct Auto 0.9 % (0.0-0.4); Lymphocytes Absolute Auto 1.8 X10*3/uL (1.2-4.9); Mean Corpuscular HGB Conc 33.6 g/dl (31.0-36.0); Mean Corpuscular Hemoglobin 29.8 pg (27.0-33.0); Mean Corpuscular Volume 88.7 fL (80.0-98.0); NRBC Abs Auto 0.000 X10*3/uL (0.0-0.012); NRBC Pct Auto 0.0 /100WBC (0.0-0.2); Platelet Count 289 X10*3/uL (160-400); Red Blood Count 4.96 X10*6/uL (4.60-5.80); White Blood Count 8.5 X10*3/uL (4.8-10.8)
[2025-07-13 12:39] LABS: Alanine Aminotransferase 40 U/L (0-40); Albumin Level 4.5 g/dL (3.5-5.0); Alkaline Phosphatase 94 U/L (39-117); Anion Gap 10 (12-20); Aspartate Amino Transferase 32 U/L (5-37); Blood Urea Nitrogen 19 mg/dL (9-16); Calcium 9.7 mg/dL (8.4-10.2); Carbon Dioxide 29 mmol/L (22-29); Chloride 107 mmol/L (96-108); Cholesterol 131 mg/dL (<200); Estimated Glomerular Filt Rate > 60; HDL Cholesterol 33 mg/dL (>40); Potassium 4.9 mmol/L (3.3-5.1); Sodium 141 mmol/L (135-145); Total Protein 7.6 g/dL (6.5-8.0); Triglycerides 83 mg/dL (<150)
== END 2025-07-13 08:33 | disposition home or self-care (01) ==
LOC: HO.HHCL 08:32
PROVIDERS: PCP Internal Medicine Geriatric Medicine; Visit Provider Internal Medicine Geriatric Medicine
DX: E11.69 Type 2 diabetes mellitus with other specified complication (principal); I25.2 Old myocardial infarction; I10 Essential (primary) hypertension
CPT/HCPCS: 36415; 80053; 80061; 82043; 82570; 85025